=== PATIENT | female | born 1970 | race Caucasian/White ===

== ENCOUNTER 2018-07-10 22:23 | Emergency (ER) | payer BC ==
[~2018-07-10] VITALS: Ht 157.5 cm; Wt 77.7 kg
[~2018-07-10 22:23] MED LIST: ALEVE 220MG220 MG PO; AMOXICILLIN 25250 MG PO; AMOXICILLIN 50500 MG PO; AMOXICILLIN875 MG PO; ATIVAN 0.50.5 MG/TAB PO; ATIVAN 1MG T1 MG/TAB PO; ATIVAN0.5 MG PO; BUTRANS5 MCG/HR TD; CELEBREX; CELEBREX 200MG200 MG PO; CLEOCIN HC150 MG/CAP PO; DAZIDOX10 MG PO; DEPO-PROVER150 MG/ML IM; DOXYCYCLINE 10100 MG PO; ESTROGEN SUPPLEMENT PO; FENTANYL 25 MCG TOP; HYDROMORPHONE HC2 MG PO; INDOCIN 25MG CA25 MG PO; KETOROLAC10 MG PO; LEUPROLIDE; LIDODERM 5% PATC1 EA TP; LOPRESSOR 225 MG/TAB PO; LOPRESSOR 550 MG/TAB PO; LOPRESSOR100 MG PO; LORTAB 5/500 501 TAB; LORTAB 5/500 501 TAB PO; LORTAB 7.5/5001 TAB; LUPRON; MACROBID 1100 MG/CAP PO; METHOCARBAMOL500 MG PO; METRONIDAZOLE500 MG PO; MORPHINE 1515 MG/TAB PO; MOTRIN 200200 MG/TAB PO; MOTRIN 600600 MG/TAB PO; MOTRIN 800800 MG/TAB PO; NAPROSYN 2250 MG/TAB PO; NAPROSYN500 MG PO; NO HOME MEDICATIONS; NORCO 325 MG-51 TAB PO; NORCO 325 MG-7.1 TAB PO; OPANA10 MG PO; OXYCODONE5 MG PO; OXYCONTIN10 MG PO; PENICILLIN V500 MG PO; PEPCID 20MG TAB20 MG PO; PERCOCET 325 MG1 TA2 PO; PERCOCET 325 MG1 TAB; PERCOCET 5/321 UDTAB PO; PHENERGAN 25 TA25 MG; PHENERGAN 25 TA25 MG PO; PHENERGAN25 MG RC; PREMARIN PO; PROGEST50 MG/ML IM; PROVERA2.5 MG PO; PYRIDIATE200 MG PO; PYRIDIUM200 M1 PO; ROBAXIN100 MG/ML IJ; ROXICODONE 55 MG/TAB PO; SAME; TRI-SPRINTEC 281 TAB PO; TYLENOL 325MG325 MG PO; ULTRAM 50MG TAB50 MG PO; ULTRAM50 MG PO; VICODIN 5/5001 UDTAB PO; XYLOCAINE TP; ZOFRAN 4MG T4 MG/TAB PO; ZOFRAN8 MG PO; ZOVIRAX800 MG PO
[2018-07-10 22:29] VITALS: BP 130/90; TEMP 97
[2018-07-10 23:29] LABS: COLLECTION METHOD CLEAN CATCH
[2018-07-10 23:31] LABS: BASO # 0.1 (0.0-0.2); BASO % 0.5 % (0.0-2.0); EOS # 0.2 (0.0-0.7); EOS % 1.1 % (0-4.0); GRAN # 8.4 (1.4-6.5); GRAN % 62.7 % (42.2-75.2); HEMATOCRIT 45.6 % (37.0-47.0); HEMOGLOBIN 16.2 g/dl (12.5-16.0); LYMPH # 3.8 (1.2-3.4); LYMPH % 28.2 % (20.0-51.0); MEAN CELL VOLUME 93 fl (80.0-100.0); MEAN CORPUSCULAR HEMOGLOBIN 33 pg (27.0-31.0); MEAN CORPUSCULAR HGB CONC 36 g/dl (33.0-37.0); MEAN PLATELET VOLUME 9.3 fl (7.4-10.4); MONO % 7.2 % (1.7-9.3); PLATELET COUNT 342 K/mm3 (130-400); RED BLOOD COUNT 4.92 M/mm3 (4.10-5.30); REDCELL DISTRIBUTION WIDTH-CV 12.3 % (11.5-14.5)
[2018-07-10 23:34] LABS: MUCOUS Present /lpf; PH 5 (5-8); URINE APPEARANCE Hazy; URINE BACTERIA None Seen /hpf; URINE BILIRUBIN Negative (NEGATIVE); URINE BLOOD 1+ (NEGATIVE); URINE COLOR Yellow; URINE GLUCOSE Negative (NEGATIVE); URINE KETONE Trace (NEGATIVE); URINE LEUKOCYTE ESTERASE Negative (NEGATIVE); URINE NITRATE Negative (NEGATIVE); URINE PROTEIN(semi-quant) Negative (NEGATIVE); URINE RBC 0-2 /hpf; URINE UROBILINOGEN Negative (NEGATIVE)
[2018-07-10 23:45] LABS: ALANINE AMINOTRANSFERASE 27 U/L (9-52); ALBUMIN 4.9 gm/dL (3.5-5.0); ALKALINE PHOSPHATASE 84 U/L (50-136); ANION GAP 12 mmol/L (7-16); AST,SGOT 23 U/L (15-37); BILIRUBIN,TOTAL 0.4 mg/dL (0.0-1.0); BLOOD UREA NITROGEN 19 mg/dL (7-17); CALCIUM 9.6 mg/dL (8.4-10.2); CARBON DIOXIDE 19 mmol/L (22-30); CHLORIDE 111 mmol/L (98-107); CREATININE, serum 0.68 mg/dL (0.52-1.25); GLUCOSE 101 mg/dL (74-106); POTASSIUM 4.3 mmol/L (3.4-5.0); SODIUM 141 mmol/L (137-145); TOTAL PROTEIN 8.1 gm/dL (6.4-8.2)
[2018-07-10 23:46] LABS: C-REACTIVE PROTEIN < 0.5 mg/dL (0.0-0.9)
[2018-07-10 23:56] LABS: TROPONIN-I < 0.012 ng/mL (0.000-0.034)
[2018-07-11] MEDS ORDERED: FLEXERIL 1010 MG/TAB PO (01:13)
[2018-07-11 01:32] VITALS: PULSE 86
== END 2018-07-11 01:33 | disposition home or self-care (01) ==
LOC: COL.ER 22:23
PROVIDERS: Nurse Practitioner
DX: M79.605 Pain in left leg (principal); M79.606 Pain in leg, unspecified; R20.2 Paresthesia of skin; M54.9 Dorsalgia, unspecified; G89.29 Other chronic pain; F17.210 Nicotine dependence, cigarettes, uncomplicated; Z79.899 Other long term (current) drug therapy

== ENCOUNTER 2018-08-20 08:51 | Outpatient (CLI) | payer BC ==
[~2018-08-20] VITALS: Ht 157.5 cm; Wt 81.5 kg
[2018-08-20] VITALS (7 sets, daily range): BP systolic 114–149; BP diastolic 77–92; PULSE 62–74
[~2018-08-20 08:51] MED LIST changes: +FLEXERIL 1010 MG/TAB PO; +GRALISE300 MG PO; +VITAMIN D31000 IU PO
--- NOTE | 2018-08-20 10:20 | NUR ---
Spoke with dr Fung,Dr Bergeron not available.Pt c/o back pain.Per pt she has chronic back pain.Pt requests to take her home Ultram.Ok per Dr Fung for pt to take her home medications.
[2018-08-20 10:31] LABS: GLUCOSE,CSF 49 mg/dL (40-70); TOTAL PROTEIN,CSF 57 mg/dL (15-45)
--- NOTE | 2018-08-20 11:00 | NUR ---
Pt reports pain better with ability to have movement.
[2018-08-20 11:06] LABS: CSF APPEARANCE CLEAR; CSF COLOR COLORLESS
[2018-08-20 11:14] LABS: CSF RBC 0 /mm3 (0-0)
[2018-08-20 11:15] LABS: CSF MONONUCLEAR 100 % (70-100); CSF POLYMORPHONUCLEAR 0 % (0-6)
--- NOTE | 2018-08-20 11:27 | NUR ---
Discharge instructions given to pt.Pt verbalizes understanding.Pt escortedout by thisnurse.
== END 2018-08-20 11:40 | disposition home or self-care (01) ==
LOC: COL.RAD 08:51
PROVIDERS: Psychiatry & Neurology Neurology
DX: G37.9 Demyelinating disease of central nervous system, unspecified (principal); R93.5 Abnormal findings on diagnostic imaging of other abdominal regions, including retroperitoneum

== ENCOUNTER 2018-08-23 19:02 | Emergency (ER) | payer BC ==
[~2018-08-23] VITALS: Ht 157.5 cm; Wt 81.8 kg
[2018-08-23 19:05] VITALS: TEMP 98.4
[2018-08-23 21:05] LABS: BASO # 0.1 (0.0-0.2); BASO % 0.6 % (0.0-2.0); EOS # 0.1 (0.0-0.7); GRAN # 7.7 (1.4-6.5); GRAN % 62.5 % (42.2-75.2); HEMATOCRIT 46.2 % (37.0-47.0); HEMOGLOBIN 15.7 g/dl (12.5-16.0); LYMPH # 3.4 (1.2-3.4); LYMPH % 27.6 % (20.0-51.0); MEAN CELL VOLUME 96 fl (80.0-100.0); MEAN CORPUSCULAR HEMOGLOBIN 33 pg (27.0-31.0); MEAN CORPUSCULAR HGB CONC 34 g/dl (33.0-37.0); MEAN PLATELET VOLUME 9.5 fl (7.4-10.4); MONO % 7.9 % (1.7-9.3); PLATELET COUNT 306 K/mm3 (130-400); RED BLOOD COUNT 4.82 M/mm3 (4.10-5.30); REDCELL DISTRIBUTION WIDTH-CV 12.5 % (11.5-14.5)
[2018-08-23 21:14] LABS: ALBUMIN 4.6 gm/dL (3.5-5.0); BILIRUBIN,TOTAL 0.4 mg/dL (0.0-1.0); CREATININE, serum 0.51 mg/dL (0.52-1.25); POTASSIUM 3.7 mmol/L (3.4-5.0); TOTAL PROTEIN 7.7 gm/dL (6.4-8.2)
[2018-08-23] MEDS ORDERED: NEURONTIN300 MG/CAP PO (21:47)
[2018-08-23 23:40] VITALS: BP 122/98; PULSE 73
== END 2018-08-23 23:40 | disposition home or self-care (01) ==
LOC: COL.ER 19:02
PROVIDERS: Nurse Practitioner
DX: R51 Headache (principal); F17.210 Nicotine dependence, cigarettes, uncomplicated
CPT/HCPCS: J1170; J1885; J2060; J7030

== ENCOUNTER → 2021-01-03 | Outpatient (CLI) | payer OTHER ==
[~2021-01-03] MED LIST changes: +NEURONTIN300 MG/CAP PO
== END ==
LOC: COL.RAD 08:06
DX: G35 Multiple sclerosis (principal); G37.9 Demyelinating disease of central nervous system, unspecified
CPT/HCPCS: A9585

== ENCOUNTER → 2021-03-01 | Outpatient (CLI) | payer OTHER | LOC: COL.RAD 11:59 | DX: G35 Multiple sclerosis (principal); G37.9 Demyelinating disease of central nervous system, unspecified ==